=== PATIENT | female | born 2000 | race African-American/Black ===

== ENCOUNTER 2024-08-03 10:27 | Emergency (ER) | payer OTHER ==
[~2024-08-03] VITALS: Ht 154.9 cm; Wt 77.1 kg
[2024-08-03] MEDS ORDERED: ONDANSETRON HCL/PF 4 MG/2 ML VIAL ONE (11:02)
[2024-08-03] MEDS ORDERED: KETOROLAC TROMETHAMINE INJ 30 MG/ML VIAL ONE (11:02)
[2024-08-03] MEDS: ONDANSETRON HCL/PF 4 MG/2 ML VIAL IVP ONE (11:11)
[2024-08-03] MEDS: KETOROLAC TROMETHAMINE 15 MG/ML VIAL IV ONE (11:11)
[2024-08-03] MEDS: IV NS 0.9% 1,000 ML BAG IV ONE (11:11)
[2024-08-03 11:23] LABS: BASOPHILS # (AUTO) 0.2 K/uL (0.0-0.2); BASOPHILS % (AUTO) 1.1 % (0.0-2.0); EOSINOPHILS # (AUTO) 0.1 K/uL (0.0-0.7); EOSINOPHILS % (AUTO) 0.3 % (0.0-6.0); HEMATOCRIT 38 % (33-45); HEMOGLOBIN 12.5 g/dL (11.5-14.8); LYMPHOCYTES # (AUTO) 2.1 K/uL (0.8-4.8); LYMPHOCYTES % (AUTO) 14.8 % (20.0-44.0); MEAN CORPUSCULAR HEMOGLOBIN 29 PG (26.0-33.0); MEAN CORPUSCULAR HGB CONC 33 g/dl (31.0-36.0); MEAN CORPUSCULAR VOLUME 87 fL (82-100); MONOCYTES # (AUTO) 0.7 K/uL (0.1-1.30); MONOCYTES % (AUTO) 5.1 % (2.0-12.0); NEUTROPHILS # (AUTO) 11.4 K/uL (1.8-8.9); NEUTROPHILS % (AUTO) 78.7 % (43.0-81.0); PLATELET COUNT (AUTO) 305 K/uL (150-450); RED BLOOD CELL COUNT(AUTO) 4.36 MIL/uL (4.0-5.2); RED CELL DISTRIBUTION WIDTH 13.9 % (11.5-15.0); WHITE BLOOD COUNT (AUTO) 14.5 K/uL (4.3-11.0)
[2024-08-03 11:42] LABS: CREATININE 0.5 mg/dL (0.6-1.3); POTASSIUM 3.8 mmol/L (3.5-5.1)
[2024-08-03 11:48] LABS: ALBUMIN 3.4 g/dL (3.4-5.0); BILIRUBIN,DIRECT 0.1 mg/dL (0.0-0.2); BILIRUBIN,TOTAL 0.4 mg/dL (0.2-1.0); CALCIUM, SERUM 9.4 mg/dL (8.5-10.1); TOTAL PROTEIN, SERUM 7.6 g/dL (6.4-8.2)
[2024-08-03 12:17] LABS: APPEARANCE,URINE CLOUDY (CLEAR); BILIRUBIN,URINE 1+ (NEGATIVE); BLOOD, URINE NEGATIVE Ery/uL (NEGATIVE); COLOR,URINE DARK YELLOW (YELLOW); KETONES,URINE 3+ mg/dL (NEGATIVE); LEUKOCYTE ESTERASE ,URINE 2+ (NEGATIVE); NITRITE, URINE NEGATIVE (NEGATIVE); PROTEIN,URINE 1+ mg/dl (NEGATIVE); UGLUCOSE NEGATIVE (NEGATIVE)
[2024-08-03 12:19] LABS: PREGNANCY TEST URINE QUAL POSITIVE (NEGATIVE)
[2024-08-03 12:41] LABS: ADD URINE CULTURE YES; BACTERIA,URINE 1+ /HPF (None Seen)
[2024-08-03 12:43] LABS: TRICHOMONAS,URINE Present /HPF (None Seen)
[2024-08-03] MEDS ORDERED: ONDA4TAB5 PO (12:58)
[2024-08-03] MEDS ORDERED: METR500T PO (12:58)
[2024-08-03 13:22] VITALS: BP 124/75; TEMP 97.8; O2SAT 97
== END 2024-08-03 13:22 | disposition home or self-care (01) ==
LOC: ER 10:35
DX: O23.41 Unspecified infection of urinary tract in pregnancy, first trimester (principal); N39.0 Urinary tract infection, site not specified; O26.891 Other specified pregnancy related conditions, first trimester; A59.9 Trichomoniasis, unspecified; O21.9 Vomiting of pregnancy, unspecified; R10.2 Pelvic and perineal pain; Z3A.09 9 weeks gestation of pregnancy
CPT/HCPCS: 99285; 96374; 76805; 96361; 96375; 85025; 80048; 87086; 83690; 80076; 84703; 81001; 36415; 86850; 84702; J1885; J2405; J7030